=== PATIENT | female | born 1980 | race Asian ===

== ENCOUNTER → 2018-01-22 | Outpatient (CLI) | payer OTHER | LOC: FIMAGING 07:42 | PROVIDERS: ATTEND Advanced Practice Midwife | DX: O09.292 Supervision of pregnancy with other poor reproductive or obstetric history, second trimester (principal); O09.522 Supervision of elderly multigravida, second trimester; Z3A.20 20 weeks gestation of pregnancy ==

== ENCOUNTER 2018-06-14 02:23 | Inpatient (IN) | payer OTHER ==
[2018-06-14] MEDS ORDERED: OLIVE OIL 118 ML BTL ONE (02:44)
[2018-06-14] MEDS ORDERED: LIDOCAINE 1% 300 MG/30 ML SDV ONE (02:44)
[2018-06-14] MEDS ORDERED: MISOPROSTOL 200 MCG TAB ONE (02:45)
[2018-06-14] MEDS ORDERED: AMMONIA AROMATIC 1 EACH AMP IH ONE (02:45)
[2018-06-14] MEDS ORDERED: OXYTOCIN 10 UNIT/ML VIAL ONE (02:45)
[2018-06-14] MEDS ORDERED: TERBUTALINE SULFATE 1 MG/ML VIAL ONE (02:45)
[2018-06-14] MEDS ORDERED: OLIVE OIL 118 ML BTL MISC PRN (02:52)
[2018-06-14] MEDS ORDERED: AMPICILLIN SODIUM 2 GM in NS 100 ML IV ONE (02:52)
[2018-06-14] MEDS ORDERED: LR 1,000 ML IV PRN (02:52)
[2018-06-14] MEDS ORDERED: LIDOCAINE 1% 300 MG/30 ML SDV SC PRN (02:52)
[2018-06-14] MEDS ORDERED: MISOPROSTOL 200 MCG TAB PO PRN (02:52)
[2018-06-14] MEDS ORDERED: OXYTOCIN/RINGERS LACTATE 1,000 ML IV PRN (02:52)
[2018-06-14] MEDS ORDERED: EPSOM SALT 454 GM TP PRN (02:52)
[2018-06-14] MEDS ORDERED: AMMONIA AROMATIC 1 EACH AMP IH PRN (02:52)
[2018-06-14] MEDS ORDERED: IBUPROFEN 600 MG TAB PO PRN (02:52)
[2018-06-14] MEDS ORDERED: TERBUTALINE SULFATE 1 MG/ML VIAL IV PRN (02:52)
--- NOTE | 2018-06-14 03:12 | PDGENHP ---
History and Physical History and Physical: CARE: [facility] HPI: Patient is a 38 yo G 3 P 1 at 41.1 weeks ega who presents to L&D with complaints of regular painful contractions for the last several hours. Denies LOF or VB. States have has been active. BPs elevated on admission when checking during contractions. Will do PE labs. EDC: 06/06/18 which is based on LMP: 08/30/17 which is known and consistent with Ultrasound at 10 weeks. 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 - Exercise induced asthma - + GBS bacteruria Review of Systems: Constitutional: Denies any fever, chills, or fatigue HEENT: denies any visual changes, difficulty swallowing, hearing loss Cardiovascular: Denies any chest pain, palpitations, leg swelling Respiratory: denies any cough, wheezing, or shortness of breathe GI: Denies any nausea, vomiting, diarrhea, constipation : denies any dysuria, urgency, frequency, vaginal bleeding Musculoskeletal: denies any muscle or bone pain Skin: denies any rashes Neuro: denies any headache, seizures, lightheadedness, dizziness, or loss of consciousness Psychiatric: denies any depression, anxiety, or SI/HI thoughts HISTORY: Previous OB history: TAB 2002, at 41 weeks ega - severe preeclampsia - baby in NICU for 3 days Past medical history: Exercise induced asthma, HSV II Past surgical history: wisdom teeth Medications: PNV, vitamin D, Ventolin inhaler rarely Allergies (list reaction): NKDA LABS: Rh: O pos ABS: Neg Rubella: Immune HbsAg: NR HIV: NR VDRL: NR 1hr: 102 GC: Neg Chlamydia: Neg Pap: Normal GBS: pos bacteruria BMI: (prepreg) 26 PHYSICAL EXAM: Constitutional: WN, A&Ox3 HEENT: normocephalic atraumatic, supple Heart: RRR, no murmur Chest: CTA-B Abdomen: Soft, nontender, gravid SVE: 4/80/-1 Extremities: trace edema, negative melanie's sign Neuro: grossly normal Psych: normal affect assessment: Reassuring FHTs, baseline 130s +accels, no decels, moderate variability Contractions: toco q 2-3 Assessment: 1) 38 yo G 3 P 1 with IUP@ 41.1 weeks ega 2) spontaneous labor 3) GBS pos - urine 4) Cat 1 FHR tracing 5) Elevated BP on admission Plan: 1) Admit to L&D 2) Intermittent monitoring per protocol 3) Diet as tolerated 4) Will send PE labs to evaluate for preeclampsia vs elevated BPs related to pain 5) GBS prophylaxis 6) Pain control as patient desires 7) anticipate
[2018-06-14 03:28] LABS: PLATELET COUNT 227 10^3/uL (150-400)
[2018-06-14] MEDS ORDERED: fentaNYL 2MCG/ML/BUP 0.1% RTU 100 ML BAG EP ONE (03:38)
[2018-06-14] MEDS ORDERED: PHENYLEPHRINE HCL 100 MCG/ML SYR ONE (03:39)
[2018-06-14] MEDS ORDERED: BUPIVACAINE 0.25% 30 ML SDV ONE (03:39)
[2018-06-14] MEDS ORDERED: NALOXONE HCL 0.4 MG/ML INJ IVP PRN (04:21)
[2018-06-14] MEDS ORDERED: PHENYLEPHRINE HCL 100 MCG/ML SYR IVP PRN (04:21)
[2018-06-14] MEDS ORDERED: METOCLOPRAMIDE 10 MG/2 ML VIAL IVP PRN (04:21)
[2018-06-14] MEDS ORDERED: ONDANSETRON 4 MG/2 ML VIAL IVP PRN (04:21)
--- NOTE | 2018-06-14 04:23 | PREANESOB ---
Obstetric Pre-Anesthesia Info - General Info Proposed Procedure: HUMPHREY : 3 Para: 1 KAIA: 06/06/18 Gestational Age: 41 week(s) and 1 day(s) - Info Status: Full Term Monitors: External FHR Pattern: Reassuring - Labor Status PIH: No Magnesium Sulfate in Use: No Indications for Labor Analgesia: Pain Control Labor Epidural: Proposed Anesthesia Allergies/Adverse Reactions: Allergy/AdvReac Type Severity Reaction Status Date / Time No Known Allergies Allergy Unverified 06/14/18 02:35 Visit Medications: Generic Name Dose Route Start Last Admin Trade Name Freq PRN Reason Stop Dose Admin Ammonia (Aromatic Spirit) 1 each 06/14/18 02:52 Ammonia Aromatic IH 06/24/18 02:51 ONCE PRN Fainting Ampicillin Sodium 1 gm/ Sodium 100 mls @ 200 mls/hr 06/14/18 06:53 Chloride IV 07/14/18 06:52 Q4H SARAH Protocol Lactated Ringer's 1,000 mls @ 0 mls/hr 06/14/18 02:52 06/14/18 03:33 Lr IV 06/15/18 02:51 1,000 mls PRN PRN Administration SEE PROTOCOL CONDITIONS Protocol Per Protocol Oxytocin/Lactated Ringer's 1,000 mls @ 0 mls/hr 06/14/18 02:52 Pitocin 20 Units/Lr (Premix) IV PRN PRN Post bleeding As Directed Ibuprofen 600 mg 06/14/18 02:52 Motrin PO ONCE PRN post , pain Lidocaine HCl 300 mg 06/14/18 02:52 Lidocaine Hcl 1% SC 12/11/18 02:51 ONCE PRN episiotomy Magnesium Sulfate 454 gm 06/14/18 02:52 Epsom Salt TP 12/11/18 02:51 Q1H PRN perineal discomfort Misoprostol 800 - 1,000 mcg 06/14/18 02:52 Cytotec PO 12/11/18 02:51 ONCE PRN Vaginal Atony/Bleeding [place] Oil 118 ml 06/14/18 02:52 Sweet Oil MISC 12/11/18 02:51 ONCE PRN perineal massage Terbutaline Sulfate 0.25 mg 06/14/18 02:52 Brethine IV 12/11/18 02:51 ONCE PRN Tachysystole Discontinued Medications Generic Name Dose Route Start Last Admin Trade Name Freq PRN Reason Stop Dose Admin Ammonia (Aromatic Spirit) Confirm 06/14/18 02:45 Ammonia Aromatic Administered 06/14/18 02:46 Dose 1 each IH .STK-MED ONE Bupivacaine HCl Confirm 06/14/18 03:39 Sensorcaine 0.25% Sdv Administered 06/14/18 03:40 Dose 30 ml .ROUTE .STK-MED ONE Fentanyl/Bupivacaine HCl Confirm 06/14/18 03:38 Fentanyl/Bupivacaine/Ns 2 Mcg/Ml 0.1% (Premix Administered 06/14/18 03:39 Dose 100 ml EP .STK-MED ONE Ampicillin Sodium 2 gm/ Sodium 110 mls @ 220 mls/hr 06/14/18 02:52 06/14/18 03:32 Chloride IV 06/14/18 03:21 110 mls ONCE ONE Administration Protocol Lidocaine HCl Confirm 06/14/18 02:44 Lidocaine Hcl 1% Administered 06/14/18 02:45 Dose 300 mg .ROUTE .STK-MED ONE Misoprostol Confirm 06/14/18 02:45 Cytotec Administered 06/14/18 02:46 Dose 1,000 mcg .ROUTE .STK-MED ONE [place] Oil Confirm 06/14/18 02:44 Sweet Oil Administered 06/14/18 02:45 Dose 118 ml .ROUTE .STK-MED ONE Oxytocin Confirm 06/14/18 02:45 Pitocin Administered 06/14/18 02:46 Dose 40 unit .ROUTE .STK-MED ONE Phenylephrine HCl Confirm 06/14/18 03:39 Neosynephrine Administered 06/14/18 03:40 Dose 1,000 mcg .ROUTE .STK-MED ONE Terbutaline Sulfate Confirm 06/14/18 02:45 Brethine Administered 06/14/18 02:46 Dose 1 mg .ROUTE .STK-MED ONE - Anesthesia History Response to Local Anesthetics: Not Applicable Anesthesia & Operative History: No Prior Problems Family Anesthesia History: Not Applicable - Social History Substance Use/Abuse: Denies - Vital Signs Height/Weight (Nursing): Height 170.18 cm Weight 82.554 kg - Focused Exam Neck exam: FROM Mallampati Score: Class 1 Mouth exam: normal dental/mouth exam Pulmonary: no respiratory distress Cardiovascular: regular rate and rhythym Labs: 06/14/18 03:20 10/19/18 03:20 Patient ABO/Rh O POSITIVE 06/14/18 03:20 Uric Acid 5.4 mg/dL (2.5-6.8) 06/14/18 03:20 Total Bilirubin 0.3 mg/dL (0.1-1.4) 06/14/18 03:20 AST 20 IU/L (14-46) 06/14/18 03:20 ALT 19 IU/L (9-52) 06/14/18 03:20 Lactate Dehydrogenase 639 IU/L (313-618) H 06/14/18 03:20 - Plan Consent Signed and on Chart: Yes Patient/Guardian Understands and Agrees to Plan: Yes Urgent/Emergent Case: Anes eval completed preop but documented later for safe timely pt care
--- NOTE | 2018-06-14 04:23 | POSTANESTH ---
Post Anesthetic Evaluation Cardiovascular Status: Normal, Stable Respiratory Status: Normal, Stable Level of Consciousness/Mental Status: Can Participate in Eval, Alert and Oriented Pain Control: Adequate, Prn Tx Ordered Nausea/Vomiting Control: Adequate, Prn Tx Ordered Complications Possibly Related to Anesthesia: None Noted
[2018-06-14] MEDS ORDERED: LR 500 ML IV SCH (04:30)
[2018-06-14] MEDS ORDERED: AMPICILLIN SODIUM 1 GM in NS 100 ML IV SCH (06:53)
--- NOTE | 2018-06-14 07:20 | OBPROG ---
Labor Progress Note Assessment/Plan: Assessment: 38 y/o at 41.1 weeks ega Active labor-SVE /-1 SROM with vaginal exam Comfortable with epidural Category 1 FHTs VSS - BPs wnl at this time PE labs wnl other than mildly elevated LDH Plan: Continue to monitor BPs Report to Teja Flower CNM Anticipate 06/14/18 07:14 06/14/18 07:22 06/14/18 07:28 06/14/18 07:34 Subjective/Intrapartum Course: 06/14/18 07:20 Comfortable with epidural Requesting vaginal exam Objective: 06/14/18 03:20 06/14/18 03:20 Patient ABO/Rh O POSITIVE 06/14/18 03:20 Uric Acid 5.4 mg/dL (2.5-6.8) 06/14/18 03:20 Total Bilirubin 0.3 mg/dL (0.1-1.4) 06/14/18 03:20 AST 20 IU/L (14-46) 06/14/18 03:20 ALT 19 IU/L (9-52) 06/14/18 03:20 Lactate Dehydrogenase 639 IU/L (313-618) H 06/14/18 03:20 - SVE Dilation (cm): 5 Effacement (%): 90 Station: -1 Membranes: SROM (Membranes ruptured with vaginal exam) Amniotic Fluid Color: Clear - Contraction Pattern Assessment Current Contraction Pattern: Regular - Physical Exam General Appearance: WD/WN Neck: non-tender Respiratory: normal breath sounds Cardiac/Chest: regular rate, rhythm Skin: warm/dry Neuro/Psych: alert, normal mood/affect, oriented x 3 Oxytocin Orders Assessment - Pre-Induction/Augmentation Assessment Gestational Age: 41 week(s) and 1 day(s) ICD10 Worksheet Patient Problems: Problems Problem Status Onset Advanced maternal age in multigravida Acute - ICD10 Problem Qualifiers (1) Advanced maternal age in multigravida
[2018-06-14] MEDS: AMPICILLIN SODIUM 1 GM in NS 100 ML IV SCH ×2 (07:43→19:43)
--- NOTE | 2018-06-14 09:20 | OBPROG ---
Labor Progress Note Assessment/Plan: Assessment: Plan: 06/14/18 09:21 Transitional labor, fetus descending Overall Category 1 strip P: Await second stage, anticipate 06/14/18 09:21 Subjective/Intrapartum Course: 06/14/18 07:20 Comfortable with epidural Requesting vaginal exam 06/14/18 09:17 Starting to feel pressure with contractions and breathing through. She has avoided pushing her epidural bolus button because she is concerned about not being able to feel the pressure when its time to push. Objective: 06/14/18 03:20 06/14/18 03:20 Patient ABO/Rh O POSITIVE 06/14/18 03:20 Uric Acid 5.4 mg/dL (2.5-6.8) 06/14/18 03:20 Total Bilirubin 0.3 mg/dL (0.1-1.4) 06/14/18 03:20 AST 20 IU/L (14-46) 06/14/18 03:20 ALT 19 IU/L (9-52) 06/14/18 03:20 Lactate Dehydrogenase 639 IU/L (313-618) H 06/14/18 03:20 FHT baseline 130 to 140; mod carol; + accels, occasional variable and early decel - SVE Dilation (cm): 9 Effacement (%): 100 Station: +1 Membranes: SROM (Membranes ruptured with vaginal exam) Amniotic Fluid Color: Clear - Contraction Pattern Assessment Current Contraction Pattern: Regular Oxytocin Orders Assessment - Pre-Induction/Augmentation Assessment Gestational Age: 41 week(s) and 1 day(s) ICD10 Worksheet Patient Problems: Problems Problem Status Onset Advanced maternal age in multigravida Acute
--- NOTE | 2018-06-14 13:39 | OBDEL ---
Info Type: Vaginal Presentation at Delivery: Vertex L&D Analgesia/Anesthesia Type: Epidural GBS+: Yes Antibiotic Used for + GBS: Ampicillin Intrapartum Medications: Generic Name Dose Route Start Last Admin Trade Name Freq PRN Reason Stop Dose Admin Lactated Ringer's 1,000 mls @ 0 mls/hr 06/14/18 02:52 06/14/18 03:33 Lr IV 06/15/18 02:51 1,000 mls PRN PRN Administration SEE PROTOCOL CONDITIONS Protocol Per Protocol Oxytocin/Lactated Ringer's 1,000 mls @ 0 mls/hr 06/14/18 02:52 06/14/18 11:50 Pitocin 20 Units/Lr (Premix) IV 1,000 mls PRN PRN Administration Post bleeding As Directed Ampicillin Sodium 1 gm/ Sodium 100 mls @ 200 mls/hr 06/14/18 08:00 06/14/18 07:43 Chloride IV 07/14/18 07:59 100 mls Q4H SARAH Administration Protocol Discontinued Medications Generic Name Dose Route Start Last Admin Trade Name [place] PRN Reason Stop Dose Admin Ampicillin Sodium 2 gm/ Sodium 110 mls @ 220 mls/hr 06/14/18 02:52 06/14/18 03:32 Chloride IV 06/14/18 03:21 110 mls ONCE ONE Administration Protocol Ibuprofen 600 mg 06/14/18 02:52 06/14/18 12:15 Motrin PO 600 mg ONCE PRN Administration post , pain - Hospital Course Intrapartum: 06/14/18 07:20 Comfortable with epidural Requesting vaginal exam 06/14/18 09:17 Starting to feel pressure with contractions and breathing through. She has avoided pushing her epidural bolus button because she is concerned about not being able to feel the pressure when its time to push. Indications for Delivery: Spontaneous Labor Vaginal Delivery - Delivery Provider Delivery Physician/CNM: Janet Flower - Labor and Delivery Onset of Contractions Date: 06/13/18 Onset of Contractions Time: 23:50 Onset of Contractions Type: Spontaneous Rupture of Membranes Date: 06/14/18 Rupture of Membranes Time: 07:00 Rupture of Membranes Type: Spontaneous Amniotic Fluid Color: Clear Dilation Complete Date: 06/14/18 Dilation Complete Time: 10:37 Placenta Delivery Date: 06/14/18 Placenta Delivery Time: 11:38 Total Hours of Labor: 11 Laceration: 2nd Degree Repair: 3-0 Vaginal Sponge Count Correct: Yes Vaginal Needle Count Correct: Yes Vaginal Sweep Performed: Yes EBL: 300 Delivery Events: None Data KAIA: 06/06/18 Gestational Age: 41 week(s) and 1 day(s) ICD10 Worksheet Patient Problems: Problems Problem Status Onset Advanced maternal age in multigravida Acute Encounter for full-term uncomplicated delivery Acute - ICD10 Problem Qualifiers (1) Encounter for full-term uncomplicated delivery
[2018-06-14] MEDS ORDERED: DOCUSATE SODIUM 100 MG CAP PO PRN (13:41)
[2018-06-14] MEDS ORDERED: HYDROCORTISONE 0.5% CREAM TP PRN (13:41)
[2018-06-14] MEDS ORDERED: PROCTOFOAM HC 10 GM CAN PR PRN (13:42)
[2018-06-14] MEDS: IBUPROFEN 600 MG TAB PO SCH (18:07)
[2018-06-14] MEDS: ACETAMINOPHEN 325 MG TAB PO SCH (18:08)
[2018-06-15] MEDS: IBUPROFEN 600 MG TAB PO SCH ×2 (01:44→09:04)
[2018-06-15] MEDS: ACETAMINOPHEN 325 MG TAB PO SCH ×3 (01:44→09:53)
[2018-06-15] MEDS: AMPICILLIN SODIUM 1 GM in NS 100 ML IV SCH ×4 (02:21→09:59)
[2018-06-15 09:20] VITALS: BP 129/78
--- NOTE | 2018-06-15 12:50 | OBPP ---
Progress Note Assessment/Plan: Assessment: Plan: 06/14/18 09:21 Transitional labor, fetus descending Overall Category 1 strip P: Await second stage, anticipate 06/14/18 09:21 06/15/18 12:50 PPD #1 Establishing P: Discharge home today. Follow up in the clinic at 2/4/6 weeks. Subjective/ Course: 06/15/18 12:47 Feeling very good. Happy with , and states so much better than her previous experious. Pain well controlled with just ibuprofen. Bleeding minimal. Baby latching well and getting a lot of colostrum. Would like to discharge home today if baby released. Objective: 06/14/18 03:20 06/14/18 03:20 Patient ABO/Rh O POSITIVE 06/14/18 03:20 Uric Acid 5.4 mg/dL (2.5-6.8) 06/14/18 03:20 Total Bilirubin 0.3 mg/dL (0.1-1.4) 06/14/18 03:20 AST 20 IU/L (14-46) 06/14/18 03:20 ALT 19 IU/L (9-52) 06/14/18 03:20 Lactate Dehydrogenase 639 IU/L (313-618) H 06/14/18 03:20 Temp Pulse Resp BP Pulse Ox 36.2 C 69 18 129/78 H 95 06/15/18 08:00 06/15/18 08:00 06/15/18 08:00 06/15/18 08:00 06/15/18 08:00 Breasts soft, nipples intact bilaterally Neg melanie's Uterine Position/Fundal Height: Umbilicus -1 Uterine Tone: Firm
--- NOTE | 2018-06-15 12:51 | OBGCSDC ---
General Delivery Information - General Info : 3 Para: 2 Abortions: 1 Type: Vaginal L&D Analgesia/Anesthesia Type: Epidural Admission Date: 06/14/18 Labs: Patient ABO/Rh O POSITIVE 06/14/18 03:20 Hct 39.5 % (38.0-47.0) 06/14/18 03:20 - Hospital Course Intrapartum: 06/14/18 07:20 Comfortable with epidural Requesting vaginal exam 06/14/18 09:17 Starting to feel pressure with contractions and breathing through. She has avoided pushing her epidural bolus button because she is concerned about not being able to feel the pressure when its time to push. : 06/15/18 12:47 Feeling very good. Happy with , and states so much better than her previous experious. Pain well controlled with just ibuprofen. Bleeding minimal. Baby latching well and getting a lot of colostrum. Would like to discharge home today if baby released. Vaginal - Delivery Provider Delivery Physician/CNM: Janet Flower - Diagnosis Labor: Spontaneous Rupture of Membranes Type: Spontaneous Amniotic Fluid Color: Clear Laceration: 2nd Degree Repair: 3-0 Delivery Events: None - Delivery EBL: 300 [place] Data KAIA: 06/06/18 Gestational Age: 41 week(s) and 2 day(s) Vega Delivery Date: 06/14/18 Delivery Time: 11:32 Sex of : Female Weight (gm): 3298 kg Score (1 Min): 8 Score (5 Min): 9 Discharge Information - Discharge Information Condition: Good Instruction/Follow Up: Two Weeks, Four Weeks, Six Weeks
== END 2018-06-15 14:45 | disposition home or self-care (01) | DRG 806 ==
LOC: FLD 02:23 → FOB 18:13
PROVIDERS: ADMIT Advanced Practice Midwife; ATTEND Advanced Practice Midwife
PROC: 0KQM0ZZ Repair Perineum Muscle, Open Approach (ICD-10-PCS; principal; 2018-06-14)
PROC: 10E0XZZ Delivery of Products of Conception, External Approach (ICD-10-PCS; principal; 2018-06-14)
DX: O70.1 Second degree perineal laceration during delivery (principal); O98.52 Other viral diseases complicating childbirth; Z37.0 Single live birth; Z3A.41 41 weeks gestation of pregnancy; B00.9 Herpesviral infection, unspecified; O99.824 Streptococcus B carrier state complicating childbirth; O99.52 Diseases of the respiratory system complicating childbirth; J45.909 Unspecified asthma, uncomplicated; Z23 Encounter for immunization
CPT/HCPCS: G0008; J0290; J2370; J2590; J3105